=== PATIENT | female | born 1990 | race Two or more races ===

== ENCOUNTER 2019-08-20 13:11 | Emergency (ER) | payer OTHER ==
[~2019-08-20] VITALS: Ht 167.6 cm; Wt 66.0 kg
[~2019-08-20 13:11] MED LIST: IBUP-1223 PO; NO MEDICATIONS; OXYC-302 PO
[2019-08-20 13:29] VITALS: BP 124/99
[2019-08-20] MEDS ORDERED: ALUMINUM/MAG/SIMETHICONE 30 ML UDC PO PRN (14:00)
[2019-08-20] MEDS ORDERED: ALUMINUM/MAG/SIMETHICONE 30 ML UDC ONE (14:01)
[2019-08-20 14:13] LABS: MICROSCOPIC NOT IND
[2019-08-20 14:23] LABS: BASOPHILS # (AUTO) 0.02 x10^3/uL (0-0.1); BASOPHILS % (AUTO) 0 % (0-1); EOSINOPHILS # (AUTO) 0.05 x10^3/uL (0-0.4); EOSINOPHILS % (AUTO) 1 % (1-7); LYMPHOCYTES # (AUTO) 2.02 x10^3/uL (1-3.4); LYMPHOCYTES % (AUTO) 23 % (22-44); MD NO; MEAN CORPUSCULAR HEMOGLOBIN 29.7 pg (27.0-34.8); MEAN CORPUSCULAR HGB CONC 34.1 g/dL (32.4-35.8); MEAN CORPUSCULAR VOLUME 87.2 fL (80-100); MEAN PLATELET VOLUME 10.8 fL (7.4-10.4); MONOCYTES # (AUTO) 0.41 x10^3/uL (0.2-0.8); MONOCYTES % (AUTO) 5 % (2-9); NEUTROPHILS # (AUTO) 6.36 x10^3/uL (1.8-6.8); NEUTROPHILS % (AUTO) 72 % (42-75); PLATELET COUNT 131 x10^3/uL (130-400); RED BLOOD COUNT 4.72 x10^6/uL (3.82-5.3); RED CELL DISTRIBUTION WIDTH 13.2 % (9.6-15.2)
[2019-08-20 14:25] LABS: ALBUMIN 3.9 g/dL (3.4-5.0); ANION GAP 8 mmol/L (5-15); CALCIUM 8.4 mg/dL (8.5-10.1); CHLORIDE 106 mmol/L (98-107)
[2019-08-20 14:27] LABS: CREATININE 0.68 mg/dL (0.55-1.02)
== END 2019-08-20 15:24 | disposition home or self-care (01) ==
LOC: ED 15:06
DX: O99.619 Diseases of the digestive system complicating pregnancy, unspecified trimester (principal); K21.0 Gastro-esophageal reflux disease with esophagitis; Z3A.00 Weeks of gestation of pregnancy not specified
CPT/HCPCS: 36415; 80048; 81003; 82040; 85025; 99283